=== PATIENT | female | born 1960 | race Two or more races ===

== ENCOUNTER 2016-12-15 16:28 | Emergency (ER) | payer OTHER ==
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
[2016-12-15 17:07] VITALS: TEMP 97; BMI 30.2
[2016-12-15] MEDS ORDERED: IBUPROFEN 600 MG TABLET (FP) PO ONE ×2 (17:32→17:55)
[2016-12-15] MEDS ORDERED: SODIUM CHLORIDE 0.9% 1000 ML INFUS.BAG IV ONE (17:32)
[2016-12-15 18:10] LABS: BASOPHIL 0.4 % (0-2.0); EOSINOPHIL 0.9 % (0-4.5); MCH 30.9 pg (25.7-33.7); MCHC 34.5 g/dl (32.0-36.0); MEAN CELL VOLUME 89.5 fl (80-96); MEAN PLT VOLUME 9.9 fl (7.5-11.1); NEUTROPHILS 65.7 % (42.8-82.8); PLATELET COUNT 291 K/MM3 (134-434); RDW 13.9 % (11.6-15.6); WHITE BLOOD COUNT 6.7 K/mm3 (4.0-10.0)
[2016-12-15 18:34] LABS: URINE APPEARANCE CLEAR; URINE BILIRUBIN NEGATIVE (NEGATIVE); URINE BLOOD 1+ (NEGATIVE); URINE COLOR LT. YELLOW; URINE GLUCOSE (UA) NEGATIVE (NEGATIVE); URINE KETONE NEGATIVE (NEGATIVE); URINE LEUK ESTERASE NEGATIVE (NEGATIVE); URINE NITRITE NEGATIVE (NEGATIVE); URINE PROTEIN NEGATIVE (NEGATIVE); URINE UROBILINOGEN 0.2 mg/dL (0.2-1.0)
[2016-12-15 18:43] VITALS: BP 120/66; PULSE 84
[2016-12-15 19:07] LABS: URINE MUCUS RARE; URINE RBC 1 /hpf (0-3); URINE WBC <1 /hpf (3-5)
[2016-12-15 20:01] LABS: ALBUMIN 3.6 g/dl (3.4-5.0); ALK PHOS 113 U/L (45-117); ANION GAP 6 (8-16); BILIRUBIN,TOTAL 0.2 mg/dL (0.2-1.0); CALCIUM 8.3 mg/dL (8.5-10.1); CO2 27 mmol/L (21-32); CREATININE 0.7 mg/dL (0.55-1.02); GLUCOSE,RANDOM 91 mg/dL (74-106); MAGNESIUM 2.3 mg/dL (1.8-2.4); SGOT/AST 25 U/L (15-37); SGPT/ALT 31 U/L (12-78); TOT PROT 6.9 g/dl (6.4-8.2)
== END 2016-12-15 21:01 | disposition home or self-care (01) ==
LOC: JER 16:28
PROC: 3E0337Z Introduction of Electrolytic and Water Balance Substance into Peripheral Vein, Percutaneous Approach (ICD-10-PCS; principal; 2016-12-15)
DX: R56.9 Unspecified convulsions (principal); Z87.891 Personal history of nicotine dependence; J45.909 Unspecified asthma, uncomplicated; M81.0 Age-related osteoporosis without current pathological fracture
CPT/HCPCS: 36415; 80053; 81003; 81015; 83735; 85025; 99283-25

== ENCOUNTER 2024-09-23 09:23 | Emergency (ER) | payer OTHER ==
[2024-09-23 09:50] VITALS: BMI 29.0
[2024-09-23 10:29] LABS: EPI CELLS 2 /uL (0-25.1); HYALINE CASTS 0 /uL (0-3.1); URINE APPEARANCE CLOUDY; URINE BACTERIA 838 /uL (0-1359); URINE BILIRUBIN NEGATIVE (NEGATIVE); URINE COLOR YELLOW; URINE GLUCOSE (UA) NEGATIVE (NEGATIVE); URINE KETONE NEGATIVE (NEGATIVE); URINE LEUK ESTERASE 3+ (NEGATIVE); URINE NITRITE NEGATIVE (NEGATIVE); URINE PROTEIN 1+ (NEGATIVE); URINE RBC 842 /uL (0-23.9); URINE UROBILINOGEN 0.2 mg/dL (0.2-1.0); URINE WBC 2504 /uL (0-25.8)
[2024-09-23 10:58] LABS: ABSOLUTE IMMATURE GRANULOCYTES 0.03 x10^3/uL (0.0-0.031); BASOPHILS # 0.04 x10^3/uL (0.01-0.08); EOSINOPHIL % 0.8 % (0.7-5.8); EOSINOPHILS # 0.07 x10^3/uL (0.04-0.36); MCHC 31.4 g/dl (32.2-35.5); MEAN CELL VOLUME 98.5 fl (79.4-94.8); MEAN PLT VOLUME 11.1 fl (9.4-12.3); MONOCYTE # 0.69 x10^3/uL (0.24-0.86); MONOCYTE % 7.9 % (4.7-12.5); RDW 13.7 % (12.4-16.4)
[2024-09-23] MEDS ORDERED: CEFTRIAXONE 1 GM/50 ML BAG ONE (11:00)
[2024-09-23 11:21] LABS: CO2 29.0 mmol/L (21-32); GLUCOSE,RANDOM 93.0 mg/dL (74-106)
[2024-09-23 11:25] LABS: CREATININE 0.7 mg/dL (0.55-1.3); SGOT/AST 52.0 U/L (15-37); SGPT/ALT 31.0 U/L (13-61)
[2024-09-23 11:26] LABS: TOT PROT 7.0 g/dl (6.4-8.2)
[2024-09-23 11:27] LABS: ALK PHOS 94.0 U/L (45-117)
[2024-09-23 12:20] VITALS: BP 119/50; PULSE 60; RESP 18; TEMP 98.4
== END 2024-09-23 12:24 | disposition home or self-care (01) ==
LOC: JER 09:23
DX: N39.0 Urinary tract infection, site not specified (principal); R30.0 Dysuria; R31.9 Hematuria, unspecified; R68.83 Chills (without fever); R10.30 Lower abdominal pain, unspecified
CPT/HCPCS: 36415; 80053; 81003; 85025; 87086; 99284-25